=== PATIENT | female | born 1935 ===

== ENCOUNTER 2022-03-21 17:11 | Inpatient (IN) | payer OTHER ==
[~2022-03-21] VITALS: Ht 157.5 cm; Wt 49.4 kg
[~2022-03-21 17:11] MED LIST: ALTACE1.25 M1; ARICEPT10 MG; ASA81 MG; B12; HYDROCODONE-APA1 CAP; LISINOPRIL-HCTZ1 T13; LISINOPRIL10 MG; NAMENDA5 MG; NORFLEX100 MG; PAXIL20 MG; PLAVIX75 MG; SIMVASTATIN40 MG; TEMAZEPAM15 MG; TROMBONEX CAPSU1 CAP
[2022-03-21] MEDS ORDERED: ATORVASTATIN CA10 MG (17:16)
[2022-03-21] MEDS ORDERED: DIVALPROEX SOD125 M1 (17:16)
[2022-03-21] MEDS ORDERED: PLAVIX75 MG (17:17)
--- NOTE | 2022-03-21 17:17 | NUR ---
SE RECIBE PTE ALERTA Y DESORIENTADA X 3 ESFERAS EN AMBULANCIA EN COMPANIA DE FAMILIAR LA CUAL REFIERE QUE PTE PRESENTA ANEMIA HGB 6.5.
--- NOTE | 2022-03-21 17:50 | NUR ---
SE ORIENTA FAMILIAR SOBRE TX MEDICO EL CUAL REFIERE ENTENDER.SE LE EXTRAEN MUESTRAS BAJO MEDIDAS ASEPTICAS,SE CANALIZA Y SE COLOCA FLUIDOS DE MANTENIMIENTO BAJANDO SIN DIFICULTAD.
[2022-03-22] MEDS ORDERED: VASOFLEX TABLE1 EACH (07:58)
[2022-03-22] MEDS ORDERED: SUPPORT237 ML (07:58)
[2022-03-22] MEDS ORDERED: OMEPRAZOLE40 MG (07:58)
[2022-03-22] MEDS ORDERED: DONEPEZIL HCL23 MG (07:59)
== END 2022-03-25 01:41 | disposition home or self-care (01) | DRG 812 ==
LOC: ER 17:11 → MEDI 22:03
PROVIDERS: ADMIT Internal Medicine; ATTEND Internal Medicine
PROC: BW21YZZ Computerized Tomography (CT Scan) of Abdomen and Pelvis using Other Contrast (ICD-10-PCS; principal; 2022-03-21)
DX: D64.9 Anemia, unspecified (principal); R64 Cachexia; R41.82 Altered mental status, unspecified; I10 Essential (primary) hypertension; Z74.01 Bed confinement status; E88.09 Other disorders of plasma-protein metabolism, not elsewhere classified; G30.8 Other Alzheimer's disease; F02.80 Dementia in other diseases classified elsewhere, unspecified severity, without behavioral disturbance, psychotic disturbance, mood disturbance, and anxiety; Z20.822 Contact with and (suspected) exposure to COVID-19